=== PATIENT | female | born 1995 | race Caucasian/White ===

== ENCOUNTER 2016-08-10 00:18 | Inpatient (IN) | payer OTHER ==
[~2016-08-10] VITALS: Ht 149.9 cm; Wt 93.4 kg
[2016-08-10] MEDS ORDERED: NEXIUM40 MG PO (01:11)
[2016-08-10] MEDS ORDERED: DESYREL 50 MG T50 MG PO (01:12)
[2016-08-10] MEDS ORDERED: JOLESSA 0.15 M1 EACH PO (01:12)
[2016-08-10] MEDS ORDERED: CYMBALTA60 MG PO (01:12)
[2016-08-10 06:34] LABS: HEMOGLOBIN 11.3 gm/dl (12.3-15.3); RED BLOOD COUNT 3.97 M/UL (4.00-5.10); WHITE BLOOD COUNT 12.2 K/UL (4.5-11.0)
[2016-08-10 06:56] LABS: BUN/CREATININE RATIO 9 (0-10)
[2016-08-11 05:00] LABS: HEMOGLOBIN 11.8 gm/dl (12.3-15.3); RED BLOOD COUNT 4.12 M/UL (4.00-5.10); WHITE BLOOD COUNT 12.8 K/UL (4.5-11.0)
[2016-08-11 05:22] LABS: BUN/CREATININE RATIO 9 (0-10)
[2016-08-12 04:26] LABS: RED BLOOD COUNT 4.2 M/UL (4.00-5.10)
[2016-08-12 04:56] LABS: BUN/CREATININE RATIO 15 (0-10)
[2016-08-13 05:22] LABS: HEMOGLOBIN 11.7 gm/dl (12.3-15.3); RED BLOOD COUNT 4.12 M/UL (4.00-5.10); WHITE BLOOD COUNT 9.9 K/UL (4.5-11.0)
[2016-08-13 05:41] LABS: BUN/CREATININE RATIO 11 (0-10)
[2016-08-13] MEDS ORDERED: ELIQUIS5 MG PO (17:40)
[2016-08-13] MEDS ORDERED: LEVAQUIN750 MG PO (17:41)
[2016-08-13] MEDS ORDERED: PROVERA 10 MG T10 MG PO (17:42)
[2016-12-19] MEDS ORDERED: PROTONIX40 MG PO (08:37)
== END 2016-08-13 18:02 | disposition home or self-care (01) | DRG 299 ==
LOC: CCU 01:00 → M/S 08-12 16:50
PROVIDERS: Family Medicine; ADMIT Emergency Medicine
DX: T81.718A Complication of other artery following a procedure, not elsewhere classified, initial encounter (principal); J96.00 Acute respiratory failure, unspecified whether with hypoxia or hypercapnia; R65.10 Systemic inflammatory response syndrome (SIRS) of non-infectious origin without acute organ dysfunction; I26.99 Other pulmonary embolism without acute cor pulmonale; Z98.890 Other specified postprocedural states; Z79.3 Long term (current) use of hormonal contraceptives; R07.81 Pleurodynia; N92.0 Excessive and frequent menstruation with regular cycle; Z79.899 Other long term (current) drug therapy; Z90.49 Acquired absence of other specified parts of digestive tract; F32.9 Major depressive disorder, single episode, unspecified; R10.9 Unspecified abdominal pain
CPT/HCPCS: ECHO; 36415; 71020; 80048; 80053; 80202; 83880; 84484; 85025; 85027; 85379; 87278; 93005; 93306; 93970; J1650; J2270; J2405; J2543; J3370; J7030; J7050; J7070

== ENCOUNTER 2016-08-15 20:20 | Inpatient (IN) | payer OTHER ==
[~2016-08-15] VITALS: Ht 149.9 cm; Wt 82.1 kg
[~2016-08-15 20:20] MED LIST: CYMBALTA60 MG PO; DESYREL 50 MG T50 MG PO; ELIQUIS5 MG PO; JOLESSA 0.15 M1 EACH PO; LEVAQUIN750 MG PO; NEXIUM40 MG PO; PROVERA 10 MG T10 MG PO
[2016-08-15 22:25] LABS: HEMOGLOBIN 13.2 gm/dl (12.3-15.3)
[2016-08-15 22:26] LABS: RED BLOOD COUNT 4.56 M/UL (4.00-5.10); WHITE BLOOD COUNT 14.9 K/UL (4.5-11.0)
[2016-08-15 22:49] LABS: BUN/CREATININE RATIO 11 (0-10)
[2016-08-16] MEDS ORDERED: ELIQUIS5 MG PO (02:58)
[2016-08-16] MEDS ORDERED: PROVERA 10 MG T10 MG PO (03:15)
[2016-08-16 04:37] LABS: HEMOGLOBIN 11.5 gm/dl (12.3-15.3); WHITE BLOOD COUNT 13.3 K/UL (4.5-11.0)
[2016-08-16 04:59] LABS: BUN/CREATININE RATIO 10 (0-10)
--- NOTE | 2016-08-16 14:58 | NUR ---
@1000 INFORMED PT OF NEED TO DO IN/OUT CATH FOR SAMPLE PT IMMED BEGIN TO [facility] AND BECAME VERY UPSET STATING THAT IT WAS "EMBARRASSING" TOLD PT I WOULD LET HER THINK ABOUT IT AND CHECK ON HER LATER @1310 CHECK WITH PT TO SEE IF SHE AGREED TO HAVE THE CATH PERFORMED AND SHE IS REFUSING TO HAVE THE IN/OUT CATH PERFORMED
[2016-08-17 07:40] LABS: HEMOGLOBIN 12.2 gm/dl (12.3-15.3); RED BLOOD COUNT 4.3 M/UL (4.00-5.10)
[2016-08-17 07:43] LABS: BUN/CREATININE RATIO 10 (0-10)
[2016-08-17 07:50] LABS: WHITE BLOOD COUNT 8.8 K/UL (4.5-11.0)
[2016-08-17] MEDS ORDERED: TYLENOL 325MG325 MG PO (12:37)
[2016-08-17] MEDS ORDERED: LIORESAL TAB 1010 MG PO (12:38)
[2016-08-17] MEDS ORDERED: LIDODERM PATCH 51 EA EXT (12:39)
[2016-12-19] MEDS ORDERED: PROTONIX40 MG PO (08:37)
== END 2016-08-17 13:15 | disposition home or self-care (01) | DRG 562 ==
LOC: ER1 20:20 → ZEROF 08-16 01:45 → MED SURG 4 08-16 03:00
PROVIDERS: Emergency Medicine; Family Medicine; ADMIT Internal Medicine
DX: S39.012A Strain of muscle, fascia and tendon of lower back, initial encounter (principal); I26.99 Other pulmonary embolism without acute cor pulmonale; J18.9 Pneumonia, unspecified organism; J98.11 Atelectasis; R10.9 Unspecified abdominal pain; Z87.442 Personal history of urinary calculi; F32.9 Major depressive disorder, single episode, unspecified; N92.0 Excessive and frequent menstruation with regular cycle; Z90.49 Acquired absence of other specified parts of digestive tract; Z98.890 Other specified postprocedural states; Z79.02 Long term (current) use of antithrombotics/antiplatelets; Z79.899 Other long term (current) drug therapy; K21.9 Gastro-esophageal reflux disease without esophagitis; R31.9 Hematuria, unspecified
CPT/HCPCS: 36415; 71020; 80048; 80053; 81001; 82150; 83690; 84703; 85025; 85027; 85610; 87040; 96361; 96374; 96375; 96376; 99285; J2270; J2405; J2543; J3370; J7050; J7070; Q9962

== ENCOUNTER 2016-08-18 22:18 | Emergency (ER) | payer OTHER ==
[~2016-08-18 22:18] MED LIST changes: +LIDODERM PATCH 51 EA EXT; +LIORESAL TAB 1010 MG PO; +TYLENOL 325MG325 MG PO
[2016-08-18 23:05] LABS: HEMOGLOBIN 13.8 gm/dl (12.3-15.3)
[2016-08-18 23:06] LABS: RED BLOOD COUNT 4.79 M/UL (4.00-5.10); WHITE BLOOD COUNT 14.4 K/UL (4.5-11.0)
[2016-08-18 23:20] LABS: BUN/CREATININE RATIO 13 (0-10)
[2016-12-19] MEDS ORDERED: PROTONIX40 MG PO (08:37)
== END 2016-08-19 03:01 | disposition home or self-care (01) ==
LOC: ER1 22:18
PROVIDERS: Physician Assistant
DX: R07.9 Chest pain, unspecified (principal); R06.00 Dyspnea, unspecified; J18.9 Pneumonia, unspecified organism; K21.9 Gastro-esophageal reflux disease without esophagitis; F32.9 Major depressive disorder, single episode, unspecified; Z88.8 Allergy status to other drugs, medicaments and biological substances
CPT/HCPCS: 36415; 71020; 80053; 81001; 82550; 82553; 83605; 83874; 84484; 84703; 85025; 85610; 85730; 87040; 93005; 96361; 96374; 96375; 99285; J1885; J2405; J7050; Q9963

== ENCOUNTER 2016-08-23 22:26 | Emergency (ER) | payer OTHER ==
[2016-08-24 03:05] LABS: HEMOGLOBIN 11.7 gm/dl (12.3-15.3); RED BLOOD COUNT 4.12 M/UL (4.00-5.10); WHITE BLOOD COUNT 9.8 K/UL (4.5-11.0)
[2016-08-24 03:24] LABS: BUN/CREATININE RATIO 14 (0-10)
[2016-12-19] MEDS ORDERED: PROTONIX40 MG PO (08:37)
== END 2016-08-24 05:03 | disposition home or self-care (01) ==
LOC: ER1 22:26
PROVIDERS: Student in an Organized Health Care Education/Training Program
DX: R06.02 Shortness of breath (principal); Z86.711 Personal history of pulmonary embolism; Z79.01 Long term (current) use of anticoagulants; Z79.899 Other long term (current) drug therapy
CPT/HCPCS: 36415; 71020; 80053; 82550; 82553; 83874; 84484; 84703; 85025; 85610; 85730; 93005; 96360; 99285; J7030

== ENCOUNTER 2016-09-01 21:31 | Emergency (ER) | payer OTHER ==
[2016-12-19] MEDS ORDERED: PROTONIX40 MG PO (08:37)
== END 2016-09-02 02:20 | disposition left against medical advice (07) ==
LOC: ER1 21:31
DX: Z53.21 Procedure and treatment not carried out due to patient leaving prior to being seen by health care provider (principal)
CPT/HCPCS: 93005

== ENCOUNTER → 2016-09-02 | Outpatient (CLI) | payer OTHER ==
[~2016-09-02] MED LIST changes: +FEOSOL325 MG PO; +PROTONIX40 MG PO
[2016-09-02 13:13] LABS: HEMOGLOBIN 11.6 gm/dl (12.3-15.3); RED BLOOD COUNT 4.18 M/UL (4.00-5.10); WHITE BLOOD COUNT 10.1 K/UL (4.5-11.0)
[2016-09-02 13:46] LABS: BUN/CREATININE RATIO 13 (0-10)
== END ==
LOC: LAB 12:32
PROVIDERS: Internal Medicine Cardiovascular Disease
DX: Z51.81 Encounter for therapeutic drug level monitoring (principal); I26.99 Other pulmonary embolism without acute cor pulmonale; R07.89 Other chest pain; M15.8 Other polyosteoarthritis; R53.83 Other fatigue; M79.7 Fibromyalgia; G89.4 Chronic pain syndrome; G44.89 Other headache syndrome; Z79.01 Long term (current) use of anticoagulants; B27.80 Other infectious mononucleosis without complication; K21.9 Gastro-esophageal reflux disease without esophagitis
CPT/HCPCS: 36415; 71020; 80048; 84484; 85027; 85379; 85610; 85730; 86039; 86140; 86431

== ENCOUNTER 2016-10-05 20:18 | Observation (INO) | payer OTHER ==
[~2016-10-05] VITALS: Ht 149.9 cm; Wt 77.1 kg
[~2016-10-05 20:18] MED LIST changes: -FEOSOL325 MG PO; -PROTONIX40 MG PO
[2016-10-05 21:18] LABS: HEMOGLOBIN 7.6 gm/dl (12.3-15.3); RED BLOOD COUNT 2.97 M/UL (4.00-5.10); WHITE BLOOD COUNT 10.8 K/UL (4.5-11.0)
[2016-10-05 21:49] LABS: BUN/CREATININE RATIO 10 (0-10)
[2016-10-06 06:25] LABS: WHITE BLOOD COUNT 9.4 K/UL (4.5-11.0)
[2016-10-06 06:47] LABS: RED BLOOD COUNT 2.55 M/UL (4.00-5.10)
[2016-10-06 06:50] LABS: HEMOGLOBIN 6.5 gm/dl (12.3-15.3)
[2016-10-06 20:27] LABS: HEMOGLOBIN 10.2 gm/dl (12.3-15.3)
[2016-10-07 05:39] LABS: HEMOGLOBIN 10.1 gm/dl (12.3-15.3); WHITE BLOOD COUNT 9.2 K/UL (4.5-11.0)
[2016-10-07 05:40] LABS: RED BLOOD COUNT 3.82 M/UL (4.00-5.10)
[2016-10-07] MEDS ORDERED: FEOSOL325 MG PO (11:08)
[2016-12-19] MEDS ORDERED: PROTONIX40 MG PO (08:37)
== END 2016-10-07 12:04 | disposition home or self-care (01) ==
LOC: ER1 20:18 → M/S 22:34 → ZEROF 22:34 → M/S 23:35
PROVIDERS: Emergency Medicine; Obstetrics & Gynecology; Specialist/Technologist Athletic Trainer; ADMIT Family Medicine
DX: D62 Acute posthemorrhagic anemia (principal); N92.0 Excessive and frequent menstruation with regular cycle; I26.99 Other pulmonary embolism without acute cor pulmonale; K21.9 Gastro-esophageal reflux disease without esophagitis; Z79.01 Long term (current) use of anticoagulants; Z79.899 Other long term (current) drug therapy
CPT/HCPCS: 36415; 36430; 80053; 84439; 84443; 84484; 84703; 85014; 85018; 85025; 85027; 86850; 86900; 86901; 86920; 93005; 96360; 96361; 99285; G0378; J7030; J7050; P9016; Q9963

== ENCOUNTER 2016-11-05 23:59 | Emergency (ER) | payer OTHER ==
[~2016-11-05 23:59] MED LIST changes: +FEOSOL325 MG PO
[2016-12-19] MEDS ORDERED: PROTONIX40 MG PO (08:37)
== END 2016-11-06 00:56 | disposition left against medical advice (07) ==
LOC: ER1 23:59
DX: Z53.21 Procedure and treatment not carried out due to patient leaving prior to being seen by health care provider (principal)

== ENCOUNTER 2016-11-09 21:18 | Emergency (ER) | payer OTHER ==
[2016-11-09 22:13] LABS: HEMOGLOBIN 11.4 gm/dl (12.3-15.3); RED BLOOD COUNT 4.16 M/UL (4.00-5.10); WHITE BLOOD COUNT 8.5 K/UL (4.5-11.0)
[2016-11-09 22:45] LABS: BUN/CREATININE RATIO 16 (0-10)
[2016-12-19] MEDS ORDERED: PROTONIX40 MG PO (08:37)
== END 2016-11-10 00:48 | disposition home or self-care (01) ==
LOC: ER1 21:18
PROVIDERS: Emergency Medicine
DX: R06.00 Dyspnea, unspecified (principal); R42 Dizziness and giddiness; Z86.711 Personal history of pulmonary embolism
CPT/HCPCS: 36415; 80053; 81001; 82550; 82553; 83605; 83874; 84484; 84703; 85025; 85379; 85610; 85730; 87086; 93005; 96360; 96361; 99285; J7030; J7050; Q9963

== ENCOUNTER → 2020-05-31 | Outpatient (CLI) | payer OTHER ==
[~2020-05-31] MED LIST changes: +ASPIR-LOW81 MG PO; +ATORVASTATIN CA20 MG PO; +AUGMENTIN 875-1 EACH PO; +BENADRYL 25MG C25 MG PO; +CEFUROXIME500 MG PO; +COLACE 100MG C100 MG PO; +DEPO-PROVE150 MG/1 M IM; +ELIQUIS2.5 MG PO; +FLEXERIL 10 MG10 MG PO; +FLUDROCORTISON0.1 MG PO; +HYDROCODON-ACE1 EAC3 PO; +HYDROCODON-ACE1 EAC4 PO; +LOPRESSOR 25 MG25 MG PO; +ONDANSETRON ODT8 MG PO; +OXYCODONE HCL5 MG PO; +PHENERGAN 25 MG25 M1 PO; +PREDNISONE20 MG PO; +PROTONIX40 MG PO; +WELLBUTRIN XL300 MG PO
[2020-05-31 10:04] LABS: RED BLOOD COUNT 4.18 M/UL (4.00-5.10); WHITE BLOOD COUNT 6.9 K/UL (4.5-11.0)
== END ==
LOC: OPSV2 08:00
PROVIDERS: Obstetrics & Gynecology
DX: Z01.812 Encounter for preprocedural laboratory examination (principal); N93.9 Abnormal uterine and vaginal bleeding, unspecified
CPT/HCPCS: 36415; 81001; 85025; 85610; 85730

== ENCOUNTER 2020-06-13 06:34 | Day surgery (SDC) | payer OTHER ==
[~2020-06-13] VITALS: Ht 149.9 cm; Wt 72.1 kg
[~2020-06-13 06:34] MED LIST changes: -ATORVASTATIN CA20 MG PO; -AUGMENTIN 875-1 EACH PO; -COLACE 100MG C100 MG PO; -DEPO-PROVE150 MG/1 M IM; -ELIQUIS2.5 MG PO; -FLUDROCORTISON0.1 MG PO; -HYDROCODON-ACE1 EAC4 PO; -LOPRESSOR 25 MG25 MG PO; -ONDANSETRON ODT8 MG PO; -OXYCODONE HCL5 MG PO; -WELLBUTRIN XL300 MG PO
[2020-06-13 07:14] LABS: HEMOGLOBIN 13.8 gm/dl (12.3-15.3); RED BLOOD COUNT 4.34 M/UL (4.00-5.10); WHITE BLOOD COUNT 8.1 K/UL (4.5-11.0)
[2020-06-13] MEDS ORDERED: FLUDROCORTISON0.1 MG PO (07:46)
[2020-06-13] MEDS ORDERED: DEPO-PROVE150 MG/1 M IM (07:46)
[2020-06-13] MEDS ORDERED: WELLBUTRIN XL300 MG PO (07:46)
[2020-06-13] MEDS ORDERED: LOPRESSOR 25 MG25 MG PO (07:47)
[2020-06-13] MEDS ORDERED: ELIQUIS2.5 MG PO (07:47)
[2020-06-13] MEDS ORDERED: ATORVASTATIN CA20 MG PO (07:47)
[2020-06-13] MEDS ORDERED: OXYCODONE HCL5 MG PO (15:47)
[2020-06-13] MEDS ORDERED: COLACE 100MG C100 MG PO (15:47)
[2020-06-13 15:49] LABS: HEMOGLOBIN 11.5 gm/dl (12.3-15.3)
== END 2020-06-13 19:40 | disposition home or self-care (01) ==
LOC: OR 06:34 → OB 12:16 → OR 19:40
PROVIDERS: Obstetrics & Gynecology
DX: N72 Inflammatory disease of cervix uteri (principal); D68.61 Antiphospholipid syndrome; L76.12 Accidental puncture and laceration of skin and subcutaneous tissue during other procedure; K21.9 Gastro-esophageal reflux disease without esophagitis; F32.9 Major depressive disorder, single episode, unspecified; F41.9 Anxiety disorder, unspecified; E66.01 Morbid (severe) obesity due to excess calories; Z68.32 Body mass index [BMI] 32.0-32.9, adult; Z79.01 Long term (current) use of anticoagulants; Z79.3 Long term (current) use of hormonal contraceptives; Z98.890 Other specified postprocedural states; Z79.899 Other long term (current) drug therapy; Z86.711 Personal history of pulmonary embolism; Z88.8 Allergy status to other drugs, medicaments and biological substances
CPT/HCPCS: 36415; 81001; 84703; 85014; 85018; 85025; 85610; 85730; J0690; J1100; J1170; J1650; J1885; J2001; J2250; J2270; J2370; J2405; J2704; J2710; J2795; J3010; J7120

== ENCOUNTER 2020-06-22 13:19 | Inpatient (IN) | payer OTHER ==
[~2020-06-22] VITALS: Ht 149.9 cm; Wt 70.3 kg
[~2020-06-22 13:19] MED LIST changes: +ATORVASTATIN CA20 MG PO; +COLACE 100MG C100 MG PO; +DEPO-PROVE150 MG/1 M IM; +ELIQUIS2.5 MG PO; +FLUDROCORTISON0.1 MG PO; +LOPRESSOR 25 MG25 MG PO; +OXYCODONE HCL5 MG PO; +WELLBUTRIN XL300 MG PO
[2020-06-22 15:38] LABS: HEMOGLOBIN 13.7 gm/dl (12.3-15.3); RED BLOOD COUNT 4.28 M/UL (4.00-5.10); WHITE BLOOD COUNT 13.8 K/UL (4.5-11.0)
[2020-06-22 15:51] LABS: BUN/CREATININE RATIO 11 (0-10)
[2020-06-23 04:35] LABS: WHITE BLOOD COUNT 13.9 K/UL (4.5-11.0)
[2020-06-23 04:39] LABS: HEMOGLOBIN 10.6 gm/dl (12.3-15.3); RED BLOOD COUNT 3.39 M/UL (4.00-5.10)
[2020-06-23 05:00] LABS: BUN/CREATININE RATIO 8 (0-10)
[2020-06-23] MEDS ORDERED: HYDROCODON-ACE1 EAC4 PO (16:37)
[2020-06-23] MEDS ORDERED: AUGMENTIN 875-1 EACH PO (16:42)
[2020-06-23] MEDS ORDERED: ONDANSETRON ODT8 MG PO (16:42)
== END 2020-06-23 21:40 | disposition home or self-care (01) | DRG 758 ==
LOC: ER1 13:19 → CDU 18:48 → MED SURG 4 20:24
PROVIDERS: Physician Assistant; ADMIT Obstetrics & Gynecology
DX: N76.0 Acute vaginitis (principal); D68.61 Antiphospholipid syndrome; F32.9 Major depressive disorder, single episode, unspecified; M79.7 Fibromyalgia; Z20.822 Contact with and (suspected) exposure to COVID-19; K59.00 Constipation, unspecified; Z90.49 Acquired absence of other specified parts of digestive tract; Z79.01 Long term (current) use of anticoagulants; Z79.899 Other long term (current) drug therapy; Z98.890 Other specified postprocedural states
CPT/HCPCS: 36415; 76856; 80053; 81001; 83605; 85025; 86140; 87040; 96374; 96375; 96376; 99285; G0378; J2270; J2405; J2543; J3370; J7030; J7070; Q9967; U0002

== ENCOUNTER 2021-05-16 12:48 | Emergency (ER) | payer OTHER ==
[~2021-05-16 12:48] MED LIST changes: +AUGMENTIN 875-1 EACH PO; +HYDROCODON-ACE1 EAC4 PO; +ONDANSETRON ODT8 MG PO
[2021-05-16 14:45] LABS: HEMOGLOBIN 13.7 gm/dl (12.3-15.3); RED BLOOD COUNT 4.49 M/UL (4.00-5.10); WHITE BLOOD COUNT 8.9 K/UL (4.5-11.0)
[2021-05-16 15:20] LABS: BUN/CREATININE RATIO 12 (0-10)
== END 2021-05-16 16:23 | disposition home or self-care (01) ==
LOC: ER1 12:48
PROVIDERS: Physician Assistant
DX: R07.9 Chest pain, unspecified (principal); M54.9 Dorsalgia, unspecified; Z90.710 Acquired absence of both cervix and uterus; Z90.49 Acquired absence of other specified parts of digestive tract; Z79.01 Long term (current) use of anticoagulants
CPT/HCPCS: 71045; 80053; 82550; 82553; 83874; 84484; 85025; 85379; 99285

== ENCOUNTER 2021-07-14 01:07 | Emergency (ER) | payer OTHER ==
[2021-07-14 01:43] LABS: HEMOGLOBIN 13.1 gm/dl (12.3-15.3); RED BLOOD COUNT 4.15 M/UL (4.00-5.10); WHITE BLOOD COUNT 15.9 K/UL (4.5-11.0)
[2021-07-14 02:11] LABS: BUN/CREATININE RATIO 21 (0-10)
[2021-07-14] MEDS ORDERED: ZOFRAN ODT 4 MG4 MG PO (05:52)
== END 2021-07-14 06:30 | disposition home or self-care (01) ==
LOC: ER1 01:07
PROVIDERS: Emergency Medicine
DX: U07.1 COVID-19 (principal); K52.9 Noninfective gastroenteritis and colitis, unspecified; R00.0 Tachycardia, unspecified
CPT/HCPCS: 0240U; 80053; 81001; 83690; 83735; 84100; 84703; 85025; 93005; 96374; 96375; 99284; J2405; J2550; J7030; Q9967